=== PATIENT | female | born 1995 | race Two or more races ===

== ENCOUNTER 2017-05-25 12:36 | Emergency (ER) | payer OTHER ==
[~2017-05-25] VITALS: Ht 160 cm; Wt 79.5 kg
[~2017-05-25 12:36] MED LIST: ACET50TA PO; IBUP600T26 PO; IBUP80TA PO; PRENTAB53 PO
[2017-05-25] MEDS ORDERED: PARO20TA3 (12:43)
[2017-05-25] MEDS ORDERED: MECLIZINE 25 MG TABLET PO ONE (16:30)
[2017-05-25 16:59] LABS: MEAN CORPUSCULAR HEMOGLOBIN 26.6 pg (27.0-33.0); MEAN CORPUSCULAR HGB CONC 33.2 g/dl (32.0-36.5); MEAN CORPUSCULAR VOLUME 80.2 fl (80.0-96.0); PLATELET COUNT, AUTOMATED 404 10^3/uL (150-450); RED CELL DISTRIBUTION WIDTH 14.5 % (11.5-14.5); WHITE BLOOD COUNT 11.1 10^3/uL (4.0-10.0)
[2017-05-25 17:00] LABS: ADD MORPHOLOGY? NO
[2017-05-25 17:01] LABS: ADD MANUAL DIFFER YES
[2017-05-25 17:04] LABS: DIFF SLIDE NUMBER 346
--- NOTE | 2017-05-25 17:07 | REP ---
CT Head without contrast HISTORY: Visual change COMPARISON: 05/01/2007 There is no intraparenchymal hemorrhage, acute infarct, mass or midline shift. The ventricular system is normal in appearance. There is no extra cerebral collection. There is no fracture. The visualized sinuses are clear. IMPRESSION: There is no intracranial lesion. Signed by Pranay Orozco MD 05/25/2017 04:57 P
[2017-05-25 17:15] LABS: ANION GAP 9 MEQ/L (8-16); BLOOD UREA NITROGEN 12 MG/DL (7-18); CALCIUM LEVEL 8.6 MG/DL (8.5-10.1); CARBON DIOXIDE LEVEL 26 MEQ/L (21-32); CHLORIDE LEVEL 105 MEQ/L (98-107); CREATININE FOR GFR 0.84 MG/DL (0.55-1.02); GLOMERULAR FILTRATION RATE > 60.0 (>60); GLUCOSE, FASTING 79 MG/DL (70-105); POTASSIUM SERUM 3.7 MEQ/L (3.5-5.1); SODIUM LEVEL 140 MEQ/L (136-145)
[2017-05-25] MEDS ORDERED: CIPR-249 PO (17:33)
[2017-05-25] MEDS ORDERED: ALBU17IN INH (17:34)
[2017-05-25 18:30] VITALS: BP 127/84
== END 2017-05-25 18:31 | disposition home or self-care (01) ==
LOC: M ED 12:36
DX: H81.10 Benign paroxysmal vertigo, unspecified ear (principal); J45.909 Unspecified asthma, uncomplicated; J06.9 Acute upper respiratory infection, unspecified; Z79.899 Other long term (current) drug therapy; Z91.048 Other nonmedicinal substance allergy status; Z82.49 Family history of ischemic heart disease and other diseases of the circulatory system

== ENCOUNTER → 2017-11-23 | Outpatient (REF) | payer OTHER ==
[2017-11-23 22:45] LABS: INFLUENZA A AMPLIFICATION NEGATIVE (NEGATIVE); INFLUENZA B AMPLIFICATION NEGATIVE (NEGATIVE)
== END ==
LOC: M LAB REF 21:46
DX: J11.1 Influenza due to unidentified influenza virus with other respiratory manifestations (principal)

== ENCOUNTER → 2018-02-07 | Outpatient (REF) | payer OTHER ==
[2018-02-07 13:56] LABS: APPEARANCE, URINE CLOUDY (CLEAR); BACTERIA, URINE AUTO 2+ (NEGATIVE); BILIRUBIN, URINE AUTO NEGATIVE (NEGATIVE); BLOOD, URINE BLOOD 2+ (NEGATIVE); COLOR, URINE YELLOW (YELLOW); GLUCOSE, URINE (UA) AUTO NEGATIVE (NEGATIVE); KETONE, URINE AUTO NEGATIVE (NEGATIVE); LEUKOCYTE ESTERASE, URINE AUTO 3+ (NEGATIVE); MUCUS, URINE SMALL (NEGATIVE); NITRITE, URINE AUTO NEGATIVE (NEGATIVE); PROTEIN, URINE AUTO 1+ mg/dL (NEGATIVE); RBC, URINE AUTO 98 /HPF (0-3); SPECIFIC GRAVITY URINE AUTO 1.011 (1.002-1.035); SQUAMOUS EPITHELIAL CELL UR AU 1 /HPF (0-6); UROBILINOGEN, URINE AUTO 0.2 mg/dL (0.0-2.0); WBC, URINE AUTO TNTC /HPF (0-3)
== END ==
LOC: M LAB REF 13:13
DX: N39.0 Urinary tract infection, site not specified (principal)

== ENCOUNTER 2018-10-23 13:43 | Emergency (ER) | payer OTHER, SELFPAY ==
[~2018-10-23] VITALS: Ht 160 cm; Wt 71.4 kg
[~2018-10-23 13:43] MED LIST changes: +ALBU17IN INH; +CIPR-249 PO; +PARO20TA3
[2018-10-23 14:52] LABS: HEMATOCRIT 40.7 % (36.0-47.0); HEMOGLOBIN 13.4 g/dl (12.0-15.5); MEAN CORPUSCULAR HEMOGLOBIN 27.1 pg (27.0-33.0); MEAN CORPUSCULAR HGB CONC 32.9 g/dl (32.0-36.5); MEAN CORPUSCULAR VOLUME 82.4 fl (80.0-96.0); PLATELET COUNT, AUTOMATED 288 10^3/uL (150-450); RED BLOOD COUNT 4.94 10^6/uL (4.00-5.40); WHITE BLOOD COUNT 10.7 10^3/uL (4.0-10.0)
--- NOTE | 2018-10-23 15:33 | REP ---
First trimester obstetric sonography: History: 11 weeks gestation, evaluate heart rate. Findings: Scanning through the gravid uterus transabdominally confirms the presence of an intrauterine gestation. The crown-rump length of the embryonic pole is 19 mm. This would correspond with a gestational age estimate of 8 weeks 3 days. However, no pole motion or cardiac motion is observed and the findings are compatible with intrauterine demise. In addition, there are small cystic changes seen in a somewhat large placenta raising the question of partial molar . No extrauterine abnormalities observed. Impression: 1. Intrauterine demise at 8 weeks 3 days by crown-rump length. 2. Cystic changes and a somewhat prominent placenta raising the question of partial molar . Electronically Signed by Chi Arciniega MD 10/23/2018 03:59 P
[2018-10-23] MEDS ORDERED: miSOPROStol 200 MCG TAB (S0191) PV ONE (16:00)
[2018-10-23] MEDS ORDERED: OXYC1TAB23 PO (16:06)
[2018-10-23 16:13] VITALS: BP 112/62
== END 2018-10-23 16:29 | disposition home or self-care (01) ==
LOC: M ED 13:43
DX: O36.4XX0 Maternal care for intrauterine death, not applicable or unspecified (principal); O99.511 Diseases of the respiratory system complicating pregnancy, first trimester; O99.89 Other specified diseases and conditions complicating pregnancy, childbirth and the puerperium; R42 Dizziness and giddiness; Z3A.08 8 weeks gestation of pregnancy

== ENCOUNTER 2023-08-16 19:15 | Emergency (ER) | payer SELFPAY ==
[~2023-08-16] VITALS: Ht 160 cm; Wt 67.4 kg
[~2023-08-16 19:15] MED LIST changes: -ACET50TA PO; +MAPA500T17 PO; +OXYC1TAB23 PO
[2023-08-16] MEDS ORDERED: TREL1AER PO (19:33)
[2023-08-16] MEDS ORDERED: ALLE180T33 PO (19:33)
[2023-08-16] MEDS ORDERED: ALBU8.5H INH (19:33)
[2023-08-16 20:29] LABS: RSV AMPLIFICATION NEGATIVE (NEGATIVE)
[2023-08-16] MEDS ORDERED: ACETAMINOPHEN 500 MG TAB PO ONE (21:40)
[2023-08-16] MEDS ORDERED: ALBUTEROL SULFATE 2.5MG/0.5ML INH NEB SOLN NEB ONE ×2 (22:25→23:40)
[2023-08-16] MEDS ORDERED: methylPREDNISolone 125MG 2ML VIAL IM ONE (22:55)
[2023-08-17] MEDS ORDERED: PRED10PA PO (01:00)
[2023-08-17] MEDS ORDERED: OSEL75CA PO (01:00)
[2023-08-17] MEDS ORDERED: OSELTAMIVIR PHOSPHATE 75 MG CAP (TAMIFLU) PO ONE (01:00)
[2023-08-17] MEDS ORDERED: ALBU6.7H6 INH (01:00)
[2023-08-17 01:11] VITALS: BP 135/68; TEMP 98.4; O2SAT 96
== END 2023-08-17 01:33 | disposition home or self-care (01) ==
LOC: M ED 19:15
DX: J11.89 Influenza due to unidentified influenza virus with other manifestations (principal); J45.901 Unspecified asthma with (acute) exacerbation
CPT/HCPCS: 71045; 87631; 94640; 96372; 99283; J2930

== ENCOUNTER 2023-08-17 06:46 | Inpatient (IN) | payer SELFPAY ==
[~2023-08-17] VITALS: Ht 160 cm; Wt 66.5 kg
[~2023-08-17 06:46] MED LIST changes: +ALBU6.7H6 INH; +ALBU8.5H INH; +ALLE180T33 PO; +OSEL75CA PO; +PRED10PA PO; +TREL1AER PO
[2023-08-17] MEDS ORDERED: ACETAMINOPHEN 500 MG TAB PO ONE (07:40)
[2023-08-17] MEDS: MAG SULF 1GM/100ML (MAG RUN) 1 GM in IV 1 EA IV SCH ×2 (07:41→07:59)
[2023-08-17 07:43] LABS: VENOUS BASE EXCESS -6.9 (-2.0-2.0); VENOUS HCO3 18.4 MMOL/L (23.0-27.0); VENOUS O2 SATURATION 64.5 % (60.0-80.0); VENOUS PARTIAL PRESSURE CO2 36.5 mmHg (38.0-50.0); VENOUS STANDARD HCO3 18.2 MMOL/L; VENOUS TOTAL CO2 19.5 MMOL/L (24.0-28.0)
[2023-08-17 07:48] LABS: BASO % 0.2 % (0.0-1.0); HEMATOCRIT 42.1 % (36.0-47.0); HEMOGLOBIN 13.8 g/dl (12.0-15.5); LYMPH # 0.4 10^3/uL (1.5-5.0); LYMPH % 2.3 % (24.0-44.0); MEAN CORPUSCULAR HEMOGLOBIN 27.1 pg (27.0-33.0); MEAN CORPUSCULAR HGB CONC 32.8 g/dl (32.0-36.5); MEAN CORPUSCULAR VOLUME 82.5 fl (80.0-96.0); MONO # 0.4 10^3/uL (0.0-0.8); MONO % 2.2 % (2.0-8.0); NEUTROPHILS # 15.4 10^3/uL (1.5-8.5); NEUTROPHILS % 94.8 % (36.0-66.0); PLATELET COUNT, AUTOMATED 293 10^3/uL (150-450); WHITE BLOOD COUNT 16.2 10^3/uL (4.0-10.0)
[2023-08-17 08:14] LABS: ALBUMIN 3.8 G/DL (3.2-5.2); ALKALINE PHOSPHATASE 70 U/L (46-116); ALT/SGPT 61 U/L (7.0-40); AST/SGOT 30 U/L (<34); BILIRUBIN,DIRECT < 0.1 MG/DL (<0.4); BILIRUBIN,TOTAL 0.3 MG/DL (0.3-1.2); BLOOD UREA NITROGEN 10 MG/DL (9-23); CALCIUM LEVEL 8.4 MG/DL (8.5-10.1); CARBON DIOXIDE LEVEL 19 MMOL/L (20-31); CHLORIDE LEVEL 106 MMOL/L (98-107); CREATININE FOR GFR 0.64 MG/DL (0.55-1.30); GLOMERULAR FILTRATION RATE > 60.0 (>60); GLUCOSE, FASTING 179 MG/DL (60-100); POTASSIUM SERUM 3.9 MMOL/L (3.5-5.1); SODIUM LEVEL 136 MMOL/L (136-145)
[2023-08-17] MEDS: IPRATROPIUM 0.5MG/ALBUTEROL 2.5MG INH SOL UD 3ML (DUONEB) NEB PRN ×2 (08:17→08:31)
[2023-08-17] MEDS ORDERED: cefTRIAXone SOD 2 GM in D5W MINI-BAG PLUS 50 ML IV ONE (08:25)
[2023-08-17] MEDS ORDERED: NS 2,050 ML in IV 1 EA IV ONE (08:25)
[2023-08-17] MEDS ORDERED: methylPREDNISolone 125MG 2ML VIAL IV ONE (08:30)
[2023-08-17] MEDS ORDERED: IPRATROPIUM 0.5MG/ALBUTEROL 2.5MG INH SOL UD 3ML (DUONEB) NEB PRN (08:35)
[2023-08-17] MEDS ORDERED: MED REC IN PROGRESS XX SCH (08:50)
[2023-08-17 09:50] VITALS: BP 130/59; TEMP 98.6; O2SAT 93
[2023-08-17] MEDS: guaiFENesin ER TABLET 600 MG TAB PO SCH ×2 (10:23→20:20)
[2023-08-17] MEDS: MONTELUKAST 10 MG TAB PO SCH (10:23)
[2023-08-17] MEDS: CETIRIZINE (ZyrTEC) 10 MG TAB PO SCH (10:23)
[2023-08-17] MEDS: IPRATROPIUM 0.5MG/ALBUTEROL 2.5MG INH SOL UD 3ML (DUONEB) NEB SCH ×4 (11:44→23:23)
[2023-08-17] MEDS ORDERED: HOME MED LIST COMPLETE! XX SCH (11:50)
[2023-08-17] MEDS: METOPROLOL TART 25 MG TABLET PO SCH ×2 (12:05→17:36)
[2023-08-17] MEDS: methylPREDNISolone 125MG 2ML VIAL IV SCH ×2 (13:17→20:20)
[2023-08-17] MEDS: OSELTAMIVIR PHOSPHATE 75 MG CAP (TAMIFLU) PO SCH ×2 (13:18→20:20)
[2023-08-17] MEDS ORDERED: ISOVUE-370 76% 100ML VIAL As Ordered ONE (13:28)
[2023-08-17 14:00] VITALS: BP 118/60; TEMP 98.6; O2SAT 95
[2023-08-17 16:46] VITALS: O2SAT 93
[2023-08-17 20:01] VITALS: BP 110/66; TEMP 98.1; O2SAT 92
[2023-08-18 00:15] VITALS: BP 110/60
[2023-08-18] MEDS: methylPREDNISolone 125MG 2ML VIAL IV SCH ×4 (02:34→20:23)
[2023-08-18 03:02] VITALS: TEMP 97.7
[2023-08-18] MEDS: IPRATROPIUM 0.5MG/ALBUTEROL 2.5MG INH SOL UD 3ML (DUONEB) NEB SCH ×6 (04:13→23:13)
[2023-08-18 04:25] LABS: HEMATOCRIT 36.7 % (36.0-47.0); HEMOGLOBIN 12.2 g/dl (12.0-15.5); MEAN CORPUSCULAR HEMOGLOBIN 27.1 pg (27.0-33.0); MEAN CORPUSCULAR HGB CONC 33.2 g/dl (32.0-36.5); MEAN CORPUSCULAR VOLUME 81.4 fl (80.0-96.0); PLATELET COUNT, AUTOMATED 275 10^3/uL (150-450); RED BLOOD COUNT 4.51 10^6/uL (4.00-5.40); WHITE BLOOD COUNT 18.3 10^3/uL (4.0-10.0)
[2023-08-18 04:48] LABS: BLOOD UREA NITROGEN 10 MG/DL (9-23); CARBON DIOXIDE LEVEL 22 MMOL/L (20-31); CHLORIDE LEVEL 113 MMOL/L (98-107); CREATININE FOR GFR 0.52 MG/DL (0.55-1.30); GLOMERULAR FILTRATION RATE > 60.0 (>60); GLUCOSE, FASTING 127 MG/DL (60-100); POTASSIUM SERUM 3.9 MMOL/L (3.5-5.1); SODIUM LEVEL 141 MMOL/L (136-145)
[2023-08-18 05:31] VITALS: BP 114/64; TEMP 97.2; O2SAT 93
[2023-08-18] MEDS: METOPROLOL TART 25 MG TABLET PO SCH ×4 (05:34→17:24)
[2023-08-18] MEDS: OSELTAMIVIR PHOSPHATE 75 MG CAP (TAMIFLU) PO SCH ×2 (08:47→20:23)
[2023-08-18] MEDS: MONTELUKAST 10 MG TAB PO SCH (08:47)
[2023-08-18] MEDS: guaiFENesin ER TABLET 600 MG TAB PO SCH ×2 (08:47→20:23)
[2023-08-18] MEDS: CETIRIZINE (ZyrTEC) 10 MG TAB PO SCH (08:48)
[2023-08-18 14:00] VITALS: BP 109/62; TEMP 98.8; O2SAT 92
[2023-08-18 21:49] VITALS: BP 108/62; TEMP 97.2; O2SAT 92
[2023-08-19] MEDS: methylPREDNISolone 125MG 2ML VIAL IV SCH ×2 (01:56→09:05)
[2023-08-19] MEDS: IPRATROPIUM 0.5MG/ALBUTEROL 2.5MG INH SOL UD 3ML (DUONEB) NEB SCH ×3 (03:43→12:07)
[2023-08-19 05:11] VITALS: BP 108/58; TEMP 97.7; O2SAT 93
[2023-08-19] MEDS: METOPROLOL TART 25 MG TABLET PO SCH ×3 (05:11→12:00)
[2023-08-19 05:43] LABS: HEMATOCRIT 34.6 % (36.0-47.0); HEMOGLOBIN 11.4 g/dl (12.0-15.5); MEAN CORPUSCULAR HEMOGLOBIN 26.7 pg (27.0-33.0); MEAN CORPUSCULAR HGB CONC 32.9 g/dl (32.0-36.5); PLATELET COUNT, AUTOMATED 297 10^3/uL (150-450); RED BLOOD COUNT 4.27 10^6/uL (4.00-5.40); WHITE BLOOD COUNT 14.7 10^3/uL (4.0-10.0)
[2023-08-19 06:03] LABS: BLOOD UREA NITROGEN 12 MG/DL (9-23); CALCIUM LEVEL 7.7 MG/DL (8.5-10.1); CARBON DIOXIDE LEVEL 23 MMOL/L (20-31); CHLORIDE LEVEL 110 MMOL/L (98-107); CREATININE FOR GFR 0.48 MG/DL (0.55-1.30); GLOMERULAR FILTRATION RATE > 60.0 (>60); GLUCOSE, FASTING 135 MG/DL (60-100); POTASSIUM SERUM 3.4 MMOL/L (3.5-5.1); SODIUM LEVEL 142 MMOL/L (136-145)
[2023-08-19] MEDS ORDERED: POTASSIUM CHLORIDE 10MEQ SR TABLET PO ONE (07:40)
[2023-08-19] MEDS ORDERED: MONT10TA97 PO ×2 (07:49→10:00)
[2023-08-19] MEDS ORDERED: PRED10TA2 PO ×2 (07:49→09:57)
[2023-08-19] MEDS ORDERED: OSEL75CA2 PO (07:49)
[2023-08-19] MEDS ORDERED: FLUT12AE6 INH ×2 (07:49→11:20)
[2023-08-19] MEDS ORDERED: ALBU2.5V10 NEB ×2 (07:49→10:01)
[2023-08-19] MEDS ORDERED: MUCI600T31 PO (07:49)
[2023-08-19] MEDS: CETIRIZINE (ZyrTEC) 10 MG TAB PO SCH (09:05)
[2023-08-19] MEDS: MONTELUKAST 10 MG TAB PO SCH (09:05)
[2023-08-19] MEDS: guaiFENesin ER TABLET 600 MG TAB PO SCH (09:05)
[2023-08-19] MEDS: OSELTAMIVIR PHOSPHATE 75 MG CAP (TAMIFLU) PO SCH (09:06)
[2023-08-19] MEDS ORDERED: OSEL75CA PO (10:00)
[2023-08-19] MEDS ORDERED: NEBU1EAC78 MC (10:01)
== END 2023-08-19 13:51 | disposition home or self-care (01) | DRG 720 ==
LOC: M ED 06:46 → M ED INP 08:31 → M MSPAV 10:02
PROVIDERS: ADMIT General Practice; ATTEND General Practice
DX: A41.9 Sepsis, unspecified organism (principal); J96.01 Acute respiratory failure with hypoxia; E87.20 Acidosis, unspecified; J45.901 Unspecified asthma with (acute) exacerbation; E83.51 Hypocalcemia; E87.6 Hypokalemia; D64.9 Anemia, unspecified; J11.1 Influenza due to unidentified influenza virus with other respiratory manifestations; Z79.899 Other long term (current) drug therapy